=== PATIENT | male | born 1935 | race Caucasian/White ===

== ENCOUNTER 2025-04-03 19:53 | Emergency (ER) | payer MEDICARE, OTHER ==
[~2025-04-03] VITALS: Ht 188 cm; Wt 70.3 kg
[2025-04-03 20:09] VITALS: BP 197/115; PULSE 104; RESP 18; TEMP 98; O2SAT 95
[2025-04-03] MEDS ORDERED: ASPIRIN ONE (20:15)
[2025-04-03 20:16] LABS: BASOPHIL # 0.1 10^3/uL (0.0-0.1); BASOPHIL % 0.5 % (0.2-1.2); EOSINOPHIL # 0.1 10^3/uL (0.0-0.2); EOSINOPHIL % 1.0 % (0.0-5.0); HEMATOCRIT(ML) 47.5 % (37.0-53.0); IG % 0.20 % (0.00-0.50); LYMPHOCYTES # 2.47 10^3/uL1 (1.0-4.8); LYMPHOCYTES % 23.5 % (24.0-44.0); MEAN CORP HGB 33.1 pg (26-34); MEAN CORP HGB CONCENTRATION 32.4 g/dL (33-36.5); MEAN CORP VOLUME 102.2 fL (78-100); MONOCYTES # 0.7 10^3/uL (0.3-0.8); MONOCYTES % 7.0 % (5.0-12.0); NEUTROPHIL # 7.1 10^3/uL (1.8-7.7); NEUTROPHILS % 67.8 % (41.0-85.0); RED BLOOD CELL 4.65 10^6/uL (4.50-5.90); RED CELL DISTRIBUTION WIDTH 12.8 % (11.5-14.5); WHITE BLOOD CELL 10.5 10^3/uL (4.5-11.0)
[2025-04-03] MEDS: ASPIRIN PO STA (20:19)
[2025-04-03 20:42] LABS: ALANINE AMINOTRANSFERASE(ML) 209.0 U/L (12-78); ALBUMIN(ML) 3.8 g/dL (3.4-5.0); CREATININE SERUM 1.21 mg/dL (0.59-1.40); EST GFR, NON-AA 56.5 (>/=60); TROPONIN I HIGH SENSITIVITY 55.0 ng/L (0-75)
[2025-04-03 21:10] VITALS: BP 176/100; PULSE 97; RESP 18; TEMP 98; O2SAT 95
[2025-04-03] MEDS: LASIX IV STA (21:22)
[2025-04-03 22:10] VITALS: BP 187/114; PULSE 90; RESP 18; TEMP 98; O2SAT 95
[2025-04-03] MEDS ORDERED: LOVENOX SQ ONE (22:39)
[2025-04-03] MEDS: NITROSTAT SL STA (22:47)
[2025-04-03] MEDS: LOVENOX SQ STA (22:48)
[2025-04-03 22:54] VITALS: BP 191/105; PULSE 104; RESP 18; TEMP 98; O2SAT 95
[2025-04-03 23:05] VITALS: BP 168/79; PULSE 105; RESP 18; TEMP 98; O2SAT 95
== END 2025-04-03 23:05 | disposition short-term general hospital (02) ==
LOC: ER 19:53
DX: I21.4 Non-ST elevation (NSTEMI) myocardial infarction (principal); I50.9 Heart failure, unspecified; Z95.0 Presence of cardiac pacemaker
CPT/HCPCS: 99285; 96374; 71275; 71045; 80053; 85025; 36415; 85379; 84484 ×2; 83605 ×2; 83880; 83690; 93005; 96372; J1650; J1938; Q9967; J8499; Q9965